=== PATIENT | male | born 1980 | race Two or more races ===

== ENCOUNTER 2020-05-20 09:52 | Outpatient (REF) | payer OTHER, SELFPAY | END 2020-05-20 09:53 | disposition home or self-care (01) | LOC: HO.LAB 09:52 | PROVIDERS: Visit Provider Internal Medicine | DX: Z20.822 Contact with and (suspected) exposure to COVID-19 (principal) | CPT/HCPCS: 36415; C9803; U0003 ==

== ENCOUNTER 2020-07-11 09:46 | Outpatient (REF) | payer OTHER, SELFPAY | END 2020-07-11 09:47 | disposition home or self-care (01) | LOC: HO.LAB 09:46 | PROVIDERS: Visit Provider Internal Medicine | DX: Z20.822 Contact with and (suspected) exposure to COVID-19 (principal) | CPT/HCPCS: 36415; C9803; U0003; U0005 ==

== ENCOUNTER 2020-08-31 11:43 | Emergency (ER) | payer OTHER, SELFPAY ==
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
[2020-08-31 11:45] VITALS: BP 148/81; PULSE 93; RESP 16; TEMP 36.7; O2SAT 99; BMI 25.9
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
[2020-08-31] MEDS: Ketorolac Tromethamine 60 MG/2 ML VIAL IM (12:28)
== END 2020-08-31 14:20 | disposition home or self-care (01) ==
PROVIDERS: Emergency Provider Emergency Medicine
DX: S20.219A Contusion of unspecified front wall of thorax, initial encounter (principal); S39.012A Strain of muscle, fascia and tendon of lower back, initial encounter; V43.52XA Car driver injured in collision with other type car in traffic accident, initial encounter; Y93.89 Activity, other specified; Y92.414 Local residential or business street as the place of occurrence of the external cause; Y99.9 Unspecified external cause status
CPT/HCPCS: 71046; 72100; 96372; 99283; 99284; J1885